=== PATIENT | female | born 1995 | race Caucasian/White ===

== ENCOUNTER 2016-11-09 20:42 | Emergency (ER) | payer BC ==
--- NOTE | 2016-11-09 20:46 | UC ---
Complaint Female HPI - HPI Summary HPI Summary: 21 YEAR OLD FEMALE PRESENTS WITH COMPLAINS OF FEVER, CHILLS, AND PAINFUL URINATION. - History Of Current Complaint Stated Complaint: UTI Time Seen by Provider: 11/09/16 20:46 Hx Obtained From: Patient Onset/Duration: Sudden Onset Timing: Constant Severity Initially: Moderate Severity Currently: Moderate Pain Scale Used: 0-10 Numeric - 5 Character: Sharp, Burning Alleviating Factor(s): Position Associated Signs And Symptoms: Positive: Back Pain - Allergies/Home Medications Allergies/Adverse Reactions: Allergies Allergy/AdvReac Type Severity Reaction Status Date / Time No Known Allergies Allergy Verified 11/09/16 20:47 Home Medications: Home Medications Control 11/09/16 [History] Spironolactone TAB* [Aldactone TAB*] 25 mg PO DAILY 11/09/16 [History Confirmed 11/09/16] PMH/Surg Hx/FS Hx/Imm Hx Previously Healthy: Yes Review of Systems Constitutional: Negative Skin: Negative Eyes: Negative ENT: Negative Respiratory: Negative Cardiovascular: Negative Gastrointestinal: Negative Genitourinary: Frequency, Urgency Motor: Negative Neurovascular: Negative Musculoskeletal: Negative Neurological: Negative Psychological: Negative All Other Systems Reviewed And Are Negative: Yes Physical Exam Triage Information Reviewed: Yes Eye Exam: Normal ENT Exam: Normal Dental Exam: Normal Neck exam: Normal Neck: Positive: 1 Respiratory Exam: Normal Cardiovascular Exam: Normal Abdominal Exam: Normal Musculoskeletal Exam: Normal Neurological Exam: Normal Psychological Exam: Normal Skin Exam: Normal Complaint Female Dx - Differential Dx/Diagnosis Provider Diagnoses: UTI. BURNING WITH URINATION. FEVER. CHILLS Discharge - Discharge Plan Condition: Stable Disposition: HOME Prescriptions: Nitrofurantoin Monohyd Macro [Macrobid] 100 mg PO BID #14 cap Patient Education Materials: Urinary Tract Infection in Women (ED)
[2016-11-09 20:47] VITALS: BP 119/78
[2016-11-09] MEDS ORDERED: Nitrofurantoin Macrocrystals* 50 MG CAP PO ONE (20:52)
== END 2016-11-09 21:35 | disposition home or self-care (01) ==
LOC: UCEAST 20:42
DX: N39.0 Urinary tract infection, site not specified (principal); R30.9 Painful micturition, unspecified; Z32.02 Encounter for pregnancy test, result negative; R50.9 Fever, unspecified
CPT/HCPCS: 81003; 84702; 87086; 99202; A9270-GY; G0463

== ENCOUNTER 2016-12-27 12:25 | Emergency (ER) | payer BC ==
[2016-12-27 12:33] VITALS: BP 111/67
--- NOTE | 2016-12-27 13:01 | UC ---
Complaint Female HPI - HPI Summary HPI Summary: Patient presents with complaints of dysuria x 1 day, She states she has had a UTI before and this feel the same way. She denies abnormal vaginal discharge, bleeding, fever, chills or flank pain. - History Of Current Complaint Chief Complaint: UCGU Stated Complaint: UTI Time Seen by Provider: 12/27/16 12:28 Hx Obtained From: Patient Hx Last Menstrual Period: 12/07/16 ?: No Onset/Duration: Sudden Onset, Lasting Days Timing: Intermittent, Lasting Days Severity Initially: Mild Severity Currently: Mild Character: Burning Aggravating Factor(s): Urination Alleviating Factor(s): Nothing Associated Signs And Symptoms: Positive: Negative - Risk Factors Ectopic Risk Factor: Negative - Allergies/Home Medications Allergies/Adverse Reactions: Allergies Allergy/AdvReac Type Severity Reaction Status Date / Time No Known Allergies Allergy Verified 11/09/16 20:47 PMH/Surg Hx/FS Hx/Imm Hx Previously Healthy: Yes - Surgical History Surgical History: None - Family History Known Family History: Positive: None - denied any PFH of cad, htn, dm. - Social History Occupation: Student Lives: Alone Alcohol Use: Rare Substance Use Type: None Smoking Status (MU): Never Smoked Tobacco Review of Systems Constitutional: Negative Skin: Negative Eyes: Negative ENT: Negative Respiratory: Negative Cardiovascular: Negative Gastrointestinal: Negative Genitourinary: Dysuria Motor: Negative Neurovascular: Negative Musculoskeletal: Negative Neurological: Negative Psychological: Negative All Other Systems Reviewed And Are Negative: Yes Physical Exam Triage Information Reviewed: Yes Vital Signs: Initial Vital Signs Temp 99.5 F 12/27/16 12:29 Pulse 62 12/27/16 12:29 Resp 18 12/27/16 12:29 BP 111/67 12/27/16 12:29 Pulse Ox 100 12/27/16 12:29 Eye Exam: Normal ENT Exam: Normal Dental Exam: Normal Neck exam: Normal Neck: Positive: 1 Respiratory Exam: Normal Cardiovascular Exam: Normal Abdominal Exam: Normal Musculoskeletal Exam: Normal Neurological Exam: Normal Psychological Exam: Normal Skin Exam: Normal Complaint Female Dx - Course Course Of Treatment: Patients test results were reviewed, UA wa negative. She states the home test was positive. She was given rx for macrobid. told to fu if her symtpoms get worse. - Differential Dx/Diagnosis Differential Diagnosis/HQI/PQRI: Urinary Tract Infection Provider Diagnoses: uti Discharge - Discharge Plan Condition: Stable Disposition: HOME Prescriptions: Nitrofurantoin Monohyd Macro [Macrobid] 100 mg PO BID #10 cap Patient Education Materials: Dysuria (ED) Referrals: Non Staff,Doctor [Primary Care Provider] - Additional Instructions: If your symptoms worsen go to the ER.
== END 2016-12-27 13:05 | disposition home or self-care (01) ==
LOC: UCEAST 12:25
DX: N39.0 Urinary tract infection, site not specified (principal); Z32.02 Encounter for pregnancy test, result negative
CPT/HCPCS: 81003; 84702; 99212; G0463

== ENCOUNTER 2019-03-07 06:59 | Day surgery (SDC) | payer OTHER, BC ==
[~2019-03-07 06:59] MED LIST: Buffered Lidocaine 1% SYRIN* 1 ML/SYRINGE INTRADERM ONE; Dexamethasone IV* 4 MG/ML 1 ML (4 MG) IV SLOW PU ONE; Famotidine IV* 10 MG/ML 2 ML (20 mg) IV ONE; Lactated Ringers 1000 ML Bag* 1,000 ML IV SCH
[2019-03-07] MEDS ORDERED: Famotidine IV* 10 MG/ML 2 ML (20 mg) ONE (07:18)
[2019-03-07] MEDS ORDERED: Dexamethasone IV* 4 MG/ML 1 ML (4 MG) ONE (07:18)
[2019-03-07] MEDS ORDERED: Buffered Lidocaine 1% SYRIN* 1 ML/SYRINGE INTRADERM ONE (07:18)
[2019-03-07] MEDS ORDERED: ceFAZolin 2 GM in NS PREMIX(*) 2 GM/100 ML BAG IVPB ONE (07:26)
[2019-03-07] MEDS ORDERED: Midazolam* 1 MG/ML 5 ML VIAL (5 MG) ONE (08:29)
[2019-03-07] MEDS ORDERED: fentaNYL* 50 MCG/ML 5 ML VIAL (250 MCG VIAL) ONE (08:29)
[2019-03-07] MEDS ORDERED: Ketorolac INJ* 30 MG/ML 1 ML VIAL ONE (08:30)
[2019-03-07] MEDS ORDERED: Ondansetron INJ* 2 MG/ML VIAL ONE (08:30)
[2019-03-07] MEDS ORDERED: Propofol* 10 MG/ML 20 ML BTL ONE (08:30)
[2019-03-07] MEDS ORDERED: Lidocaine 1% w EPI 1:200,000* SDV 30 ML VIAL ONE (08:36)
[2019-03-07] MEDS ORDERED: Ropivacaine 0.2% * 2 MG/ML VIAL ONE (08:36)
[2019-03-07] MEDS ORDERED: oxyCODONE/Acetamin 5/325 MG* TAB PO PRN (09:09)
[2019-03-07] MEDS ORDERED: Naloxone* 0.4 MG/ML 1 ML VIAL IV PRN (09:09)
[2019-03-07] MEDS ORDERED: fentaNYL* 50 MCG/ML 2 ML VIAL (100 MCG VIAL) IV PRN (09:09)
[2019-03-07] MEDS ORDERED: Ondansetron INJ* 2 MG/ML VIAL IV PRN (09:09)
[2019-03-07] MEDS ORDERED: DiMENhydriNATE IV* 50 MG/ML VIAL IV PUSH PRN (09:09)
[2019-03-07 11:31] VITALS: BP 108/67
--- NOTE | 2019-03-07 20:20 | OP ---
CC: PCP, [facility] * DATE OF OPERATION: 03/07/19 - [facility] DATE OF : 89 SURGEON: Hallie John MD LAY BROTHER: None available. ANESTHESIOLOGIST: Dr. Shell. ANESTHESIA: General. 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 OPERATIVE PROCEDURE: Right knee arthroscopy with synovectomy of the medial, lateral and anterior compartments, and small chondroplasty of the medial femoral condyle. COMPLICATIONS: None. ESTIMATED BLOOD LOSS: Minimal. INDICATIONS: Lorraine Stockton is a 23-year-old female who has had persistent knee pain for several years. She has failed conservative management including physical therapy, anti-inflammatories, ice, heat. I gave her injection as a challenge and she responded. After extensive discussion of the risks and benefits of operative versus nonoperative treatment, she has elected to proceed with surgical treatment. Risks included, but are not limited to bleeding; infection; damage to nerves, vessels, surrounding structures; wound nonhealing; persistent pain; need for further surgery; scarring; stiffness; incomplete relief of symptoms; risks of anesthesia. DESCRIPTION OF PROCEDURE: The patient was greeted in the preoperative area by the attending surgeon. Correct extremity was marked and consent was confirmed. She was brought back to the operating suite where she was placed in the supine position on the operating table. She then underwent general anesthesia with LMA intubation, after which an unsterile tourniquet was placed high on the proximal thigh. A lateral post was positioned. The right leg was then prepped and draped in the usual sterile fashion beginning with chlorhexidine soap, scrub , and alcohol wipe, and a final prep with ChloraPrep. After appropriate surgical pause indicating side, site, procedure, and administration of antibiotics, the knee was intra-articularly injected with 1% lidocaine with epi. The anterolateral portal was made sharply with an 11- blade. Scope was introduced into the joint and the joint was examined. There was abundant synovitis that was present. The ACL and PCL were intact. The anteromedial portal was made in an outside-in fashion. Shaver was used to debride back the significant synovitis that was present. There was a plica medially as well as laterally. The gutters were not able to be visualized right away. The medial compartment was examined. The medial meniscus was intact. The medial femoral condyle and medial plateau had grade 0 changes, but on the very medial aspect where it was rubbing against the plica, there was a small area of chondrosis and unstable flap. This was debrided back, it was on the very edge of the medial femoral condyle. Lateral compartment was examined. There were grade 0 changes. The lateral meniscus was intact. The patellofemoral joint was examined. There was abundant synovitis around this. This was released using the shaver. Electrocautery device was used to maintain hemostasis at all times. The patellofemoral joint had grade 0 changes. The gutters were visualized once they were removed of any plica and they were found to be intact. The dense tissue laterally was carefully released in the gutter. The electrocautery was used to maintain hemostasis. The knee was then thoroughly lavaged removing any loose debris. The wounds were then copiously irrigated with sterile saline. Portals were closed with 3-0 nylon. The wound was superficially and intra-articularly injected with 0.2% ropivacaine. Sterile dressings were applied and Cryo/Cuff. She was awoken from anesthesia and transferred to the PACU in stable condition. POSTOPERATIVE PLAN: She will be weightbearing as tolerated with crutches for 3 to 5 days. Discharged on pain medication. DVT prophylaxis was considered, but deferred due to no previous personal or family history. I will see the patient back in 10 to 14 days. [id number]/[facility] #: [id number] GER
== END 2019-03-07 10:55 | disposition home or self-care (01) ==
LOC: OR 06:59
PROVIDERS: ATTEND Orthopaedic Surgery
DX: M22.2X1 Patellofemoral disorders, right knee (principal); M76.31 Iliotibial band syndrome, right leg; M79.4 Hypertrophy of (infrapatellar) fat pad; K21.9 Gastro-esophageal reflux disease without esophagitis
CPT/HCPCS: 81025; J0690; J1100; J1885; J2001; J2250; J2405; J2704; J2795; J3010